=== PATIENT | female | born 1985 | race Caucasian/White ===

== ENCOUNTER 2023-06-21 17:43 | Emergency (ER) | payer SELFPAY ==
[~2023-06-21] VITALS: Ht 160 cm; Wt 69.0 kg
[2023-06-21 17:48] VITALS: TEMP 98.6; O2SAT 99
[2023-06-21 18:00] VITALS: BP 103/68; PULSE 104; RESP 18
[2023-06-21] MEDS ORDERED: IBUPROFEN 600MG TABLET PO ONE (18:00)
== END 2023-06-21 18:00 | disposition left against medical advice (07) ==
LOC: ER 17:43
DX: S90.01XA Contusion of right ankle, initial encounter (principal); S90.31XA Contusion of right foot, initial encounter; S93.601A Unspecified sprain of right foot, initial encounter; X58.XXXA Exposure to other specified factors, initial encounter; Y93.89 Activity, other specified; Y92.89 Other specified places as the place of occurrence of the external cause; Y99.8 Other external cause status
CPT/HCPCS: 73610; 73630; 99284